=== PATIENT | female | born 1975 | race Caucasian/White ===

== ENCOUNTER 2016-09-21 21:28 | Emergency (ER) | payer BC ==
[~2016-09-21] VITALS: Ht 175.3 cm; Wt 92.0 kg
[2016-09-21 21:29] VITALS: BP 134/88; PULSE 76; RESP 16; TEMP 98.5; O2SAT 98
[2016-09-21] MEDS ORDERED: MOBI15TA PO (22:46)
[2016-09-21] MEDS ORDERED: ULTR50TA5 PO (22:46)
--- NOTE | 2016-09-21 22:46 | PD ---
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 Patient states that she had IUD insertion 3 weeks ago. Patient states that she has vaginal spotting since then. Patient states that she has increasing pelvic cramping and vaginal bleeding for the past 2 days. Patient denies any fever chills. Patient denies any dysuria or frequency. Patient denies any headache. Patient denies any chest pain or shortness of breath. Patient denies any nausea vomiting diarrhea. Patient denies any back pain. PFSH Past Medical History Diabetes: Yes Patient Takes Glucophage: No Diminished Hearing: No Tetanus Vaccination: < 5 Years Influenza Vaccination: Yes ?: Not : 2 Para: 2 Past Surgical History Surgical History: No Previous Surgery Section: No Social History Alcohol Use: No Tobacco Use: No Substance Use: No Allergies-Medications (Allergen,Severity, Reaction): Coded Allergies: Keflex (Verified Adverse Reaction, Severe, Rash, 09/21/16) Review of Systems General / Constitutional: No: Fever Eyes: No: Visual changes HENT: No: Headaches Cardiovascular: No: Chest Pain or Discomfort Respiratory: No: Shortness of Breath Gastrointestinal: No: Abdominal Pain Genitourinary: Positive: Pelvic Pain, Vaginal Bleeding, No: Dysuria Musculoskeletal: No: Pain Skin: No Rash Neurologic: No: Weakness Psychiatric: No: Depression Endocrine: No: Polydipsia Hematologic/Lymphatic: No: Easy Bruising Physical Exam Narrative GENERAL: Well-nourished, well-developed patient. SKIN: Focused skin assessment warm/dry. HEAD: Normocephalic. EYES: No scleral icterus. No injection or drainage. NECK: Supple, trachea midline. No JVD or lymphadenopathy. CARDIOVASCULAR: Regular rate and rhythm without murmurs, gallops, or rubs. RESPIRATORY: Breath sounds equal bilaterally. No accessory muscle use. GASTROINTESTINAL: Abdomen soft, non-tender, nondistended. MUSCULOSKELETAL: No cyanosis, or edema. BACK: Nontender without obvious deformity. No CVA tenderness. DIRECTOR EHS exam: Patient has small amount of blood in the vaginal vault. IUD string protruding from the cervical os. Uterus is nonenlarged with mild to moderate tenderness on palpation. No adnexal mass or tenderness. Data Data Last Documented VS Vital Signs Date Time Temp Pulse Resp B/P Pulse Ox O2 Delivery O2 Flow Rate FiO2 09/21/16 21:29 98.5 76 16 134/88 98 Room Air MDM Medical Decision Making Medical Screen Exam Complete: Yes Emergency Medical Condition: Yes Differential Diagnosis Differential diagnosis including dysmenorrhea, menorrhagia, IUD irritation., Cervicitis, PID. Narrative Course 41-year-old female with pelvic cramping and vaginal bleeding. Status post IUD insertion 3 weeks ago. Diagnosis Primary Impression: Menorrhagia Qualified Code: N92.1 - Menorrhagia with irregular cycle Patient Instructions: General Instructions Additional Instructions: Take medication as needed for pain. 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 Return if worse. Med/Other Pt SpecificInfo: Prescription(s) given Scripts Tramadol (Ultram)50 Mg Tab50 Mg PO Q6H PRN (PAIN) #20 TAB Prov:Emmett Allen MD 09/21/16 Meloxicam (Mobic)15 Mg Tab15 Mg PO DAILY #20 TAB Prov:Emmett Allen MD 09/21/16 Disposition: 01 DISCHARGE HOME Condition: Stable Emmett Allen MD Sep 21, 2016 22:46
== END 2016-09-21 23:47 | disposition home or self-care (01) ==
LOC: NEPD 21:28
DX: N92.1 Excessive and frequent menstruation with irregular cycle (principal); E11.9 Type 2 diabetes mellitus without complications; Z98.890 Other specified postprocedural states; Z97.5 Presence of (intrauterine) contraceptive device
CPT/HCPCS: 99283